=== PATIENT | female | born 1970 | race Two or more races ===

== ENCOUNTER → 2019-02-26 | Emergency (ER) | payer OTHER ==
[~2019-02-26] VITALS: Ht 162.6 cm; Wt 68.0 kg
[~2019-02-26] MED LIST: FLUTICASONE-SA1 EAC5 PO; PROVENTIL HFA6.7 GM IH; ZYNCOF 400-201 EACH PO
== END | disposition home or self-care (01) ==
LOC: ER 03:09
DX: J45.998 Other asthma (principal); R06.02 Shortness of breath; F41.8 Other specified anxiety disorders